=== PATIENT | female | born 1955 | race Asian ===

== ENCOUNTER 2024-02-23 14:52 | Inpatient (IN) | payer OTHER, BC, MEDICARE ==
[~2024-02-23] VITALS: Ht 154.9 cm; Wt 67.1 kg
[~2024-02-23 14:52] MED LIST: APIX5TAB PO; ASPI-1497 PO; ATOR40TA70 PO; COR3 PO; FAMO20TA8 PO; FURO-151 PO; LOSA25TA26 PO
[2024-02-23 16:00] LABS: HEMATOCRIT. 53.8 % (36.0-48.0); MEAN CORPUSCULAR HEMOGLOBIN 31.2 pg (28.0-32.0); MEAN CORPUSCULAR HGB CONC 33.5 g/dL (31.0-37.0); MEAN CORPUSCULAR VOLUME 93.1 fL (81.0-99.0); MEAN PLATELET VOLUME 11.2 fl (7.4-10.4); PLATELET 191 x1000/uL (130-400); RED BLOOD CELL COUNT 5.77 mill/uL (4.2-5.4); RED CELL DISTRIBUTION WIDTH 12.8 % (11.6-14.6); WHITE BLOOD COUNT 11.5 x1000/uL (4.5-11.0)
[2024-02-23 16:03] LABS: CHLORIDE 101 mEq/L (98-107); DIFFERENTIAL COMMENT 1; POTASSIUM 5.9 mEq/L (3.5-5.1); SODIUM 136 mEq/L (136-145)
[2024-02-23 16:04] LABS: CALCIUM 9.6 mg/dL (8.7-10.4); CARBON DIOXIDE 24 mEq/L (21-32); INR 0.9; PROTHROMBIN TIME 10.1 sec (9.6-11.0)
[2024-02-23 16:09] LABS: CREATININE 1.4 mg/dL (0.6-1.0); GLUCOSE 299 mg/dL (70-105); TROPONIN I HIGH SENSITIVITY 7 ng/L (3.0-34); UREA NITROGEN BLOOD 24 mg/dL (9-23)
[2024-02-23 16:11] LABS: ALANINE AMINOTRANSFERASE 19 IU/L (10-49); ALBUMIN 4.3 g/dL (3.2-4.8); ASPARTATE AMINOTRANSFERASE 37 IU/L (<34); BILIRUBIN TOTAL 0.5 mg/dL (0.1-1.0); PROTEIN TOTAL 8.3 g/dL (6.0-8.3)
[2024-02-23 16:23] LABS: PLATELET ESTIMATE NORMAL
[2024-02-23] MEDS: SODIUM CHLORIDE 0.9% 1,000 ML IV ONE (17:00)
[2024-02-23] MEDS: SODIUM CHLORIDE 0.9% 1000ML BAG (SEPSIS BOLUS) IV ONE (17:15)
[2024-02-23] MEDS ORDERED: ALBUTEROL (0.083%) 2.5MG/3ML NEB HHN ONE (17:30)
[2024-02-23] MEDS ORDERED: SODIUM POLYSTYRENE SULFONATE 15 G/60 ML BOT PO ONE (17:30)
[2024-02-23] MEDS: CEFTRIAXONE 1GM/50ML 50 ML IV ONE (19:09)
[2024-02-23] MEDS: AZITHROMYCIN 500MG/250ML 250 ML IV ONE (19:28)
[2024-02-23] MEDS: SODIUM BICARBONATE 8.4% 1 MEQ/ML 50ML SYR IV ONE (19:58)
[2024-02-23] MEDS: SODIUM POLYSTYRENE SULFONATE 15 G/60 ML BOT PO NR (19:58)
[2024-02-24] MEDS ORDERED: DEXTROSE 50% WATER 50ML SYRINGE IV PRN
[2024-02-24] MEDS: SODIUM POLYSTYRENE SULFONATE 15 G/60 ML BOT PO NR (00:07)
[2024-02-24] MEDS: SODIUM CHLORIDE 0.9% 1,000 ML IV SCH (00:07)
[2024-02-24 02:30] VITALS: BP 136/67; PULSE 105; RESP 16; TEMP 97.9
[2024-02-24 04:00] VITALS: BP 130/50; PULSE 90; RESP 16; TEMP 98.8
[2024-02-24 05:58] LABS: CALCIUM 8.8 mg/dL (8.7-10.4); CARBON DIOXIDE 25 mEq/L (21-32); CHLORIDE 105 mEq/L (98-107); SODIUM 139 mEq/L (136-145)
[2024-02-24 06:03] LABS: CREATININE 0.9 mg/dL (0.6-1.0); GLUCOSE 214 mg/dL (70-105); TRIGLYCERIDE 109 mg/dL (0-150)
[2024-02-24 06:04] LABS: LDL CHOLESTEROL 119 mg/dL (5-100); UREA NITROGEN BLOOD 17 mg/dL (9-23)
[2024-02-24 06:05] LABS: CHOLESTEROL 167 mg/dL (<200)
[2024-02-24 06:06] LABS: HDL CHOLESTEROL 35 mg/dL (>65); POTASSIUM 3.3 mEq/L (3.5-5.1)
[2024-02-24] MEDS: BLOOD SUGAR DIAGNOSTIC STRIP TEST SCH (06:20)
[2024-02-24] MEDS: INSULIN LISPRO 100 UNITS/ML SUBCUT SCH (06:20)
[2024-02-24 06:31] LABS: HEMATOCRIT. 47.8 % (36.0-48.0); HEMOGLOBIN. 15.7 g/dL (12.0-16.0); MEAN CORPUSCULAR HEMOGLOBIN 30.8 pg (28.0-32.0); MEAN CORPUSCULAR HGB CONC 32.9 g/dL (31.0-37.0); MEAN CORPUSCULAR VOLUME 93.7 fL (81.0-99.0); MEAN PLATELET VOLUME 11.4 fl (7.4-10.4); PLATELET 167 x1000/uL (130-400); RED CELL DISTRIBUTION WIDTH 12.7 % (11.6-14.6); WHITE BLOOD COUNT 8.2 x1000/uL (4.5-11.0)
[2024-02-24 06:35] LABS: DIFFERENTIAL COMMENT 1
[2024-02-24 08:00] VITALS: BP 127/54; PULSE 60; RESP 18; TEMP 98.1
[2024-02-24] MEDS: APIXABAN 5 MG TABLET PO SCH (09:18)
[2024-02-24] MEDS: ASPIRIN 81MG EC TABLET PO SCH (09:18)
[2024-02-24] MEDS: INSULIN GLARGINE 100 UNITS/ML SUBCUT SCH (09:42)
[2024-02-24 12:00] VITALS: BP 111/67; PULSE 95; RESP 16; TEMP 97.1
[2024-02-24 13:03] LABS: PLATELET ESTIMATE NORMAL
[2024-02-24 14:31] LABS: CLARITY URINE CLEAR (CLEAR); COLOR URINE YELLOW (YELLOW); GLUCOSE URINE 2+ (NEGATIVE); KETONES URINE NEGATIVE (NEGATIVE); LEUKOCYTE ESTERASE URINE 1+ (NEGATIVE); NITRITE URINE NEGATIVE (NEGATIVE); OCCULT BLOOD URINE NEGATIVE (NEGATIVE); PROTEIN URINE 2+ (NEGATIVE)
[2024-02-24 14:42] LABS: BACTERIA URINE NONE SEEN; RBC URINE 0-2 /hpf (0-2); SQUAMOUS EPITHELIAL CELL URINE 2+ /lpf (RARE/1+); YEAST URINE 1+
[2024-02-24 15:50] LABS: TROPONIN I HIGH SENSITIVITY 13 ng/L (3.0-34)
[2024-02-24 16:00] VITALS: BP 139/60; PULSE 92; RESP 19; TEMP 97.8
[2024-02-24 20:00] VITALS: BP_SYST 136; BP_SYST 139; BP_SYST 142; BP_DIAS 68; BP_DIAS 69; BP_DIAS 74; PULSE 87; RESP 19; TEMP 97.5
[2024-02-24] MEDS: ATORVASTATIN CALCIUM 40MG TABLET PO SCH (20:10)
[2024-02-24] MEDS: POTASSIUM CHLORIDE 20MEQ TABLET SR PO NR (20:10)
[2024-02-24] MEDS: CARVEDILOL 3.125 MG TABLET PO SCH (20:21)
[2024-02-24] MEDS ORDERED: NON FORMULARY PATIENT HOME MED XX SCH (22:30)
[2024-02-24] MEDS: VANCOMYCIN 1.25GM PMX (XELLIA) 250 ML IV NR (23:47)
[2024-02-25 04:00] VITALS: BP 126/53; PULSE 88; RESP 19; TEMP 97.5
[2024-02-25 07:09] LABS: CALCIUM 8.3 mg/dL (8.7-10.4); CARBON DIOXIDE 22 mEq/L (21-32); CHLORIDE 110 mEq/L (98-107); POTASSIUM 3.9 mEq/L (3.5-5.1); SODIUM 140 mEq/L (136-145)
[2024-02-25 07:15] LABS: CREATININE 0.8 mg/dL (0.6-1.0); GLUCOSE 189 mg/dL (70-105); UREA NITROGEN BLOOD 13 mg/dL (9-23)
[2024-02-25 08:00] VITALS: BP 139/72; PULSE 85; RESP 18; TEMP 97.5
[2024-02-25 12:00] VITALS: BP 142/63; PULSE 87; RESP 18; TEMP 97.7
[2024-02-25] MEDS ORDERED: VANCOMYCIN 500MG/100ML IV SCH (12:00)
[2024-02-25 15:13] VITALS: BP 122/61; PULSE 76; TEMP 98.3; O2SAT 98
[2024-02-25 16:00] VITALS: BP 135/58; PULSE 84; RESP 18; TEMP 98
== END 2024-02-25 15:45 | disposition home or self-care (01) | DRG 871 ==
LOC: ER 15:03 → 7EST 19:36 → EDBEDREQTM 19:43 → EDBEDREQ 19:43
PROVIDERS: ADMIT Internal Medicine; ATTEND Internal Medicine
DX: A41.89 Other specified sepsis (principal); U07.1 COVID-19; I50.42 Chronic combined systolic (congestive) and diastolic (congestive) heart failure; E78.00 Pure hypercholesterolemia, unspecified; I11.0 Hypertensive heart disease with heart failure; E11.65 Type 2 diabetes mellitus with hyperglycemia; Z86.711 Personal history of pulmonary embolism
CPT/HCPCS: 36415; 71045; 80048; 80053; 80061; 81003; 82962; 83036; 83605; 83880; 84145; 84484; 85025; 87426; 93005; 99291; J0456; J0696; J1815; J3370; J3490; J7030

== ENCOUNTER → 2024-06-22 | Outpatient (CLI) | payer BC, MEDICARE | END | disposition home or self-care (01) | LOC: LAB 16:47 | PROVIDERS: ATTEND Internal Medicine Critical Care Medicine | DX: I26.99 Other pulmonary embolism without acute cor pulmonale (principal) | CPT/HCPCS: 36415; 82565; 84520 ==

== ENCOUNTER → 2024-07-09 | Outpatient (CLI) | payer BC, MEDICARE ==
[~2024-07-09] MED LIST changes: +IOHEXOL-350 100 ML BOTTLE ONE
== END | disposition home or self-care (01) ==
LOC: CT 09:17
PROVIDERS: ATTEND Internal Medicine Critical Care Medicine
DX: I26.99 Other pulmonary embolism without acute cor pulmonale (principal); K80.20 Calculus of gallbladder without cholecystitis without obstruction; I82.493 Acute embolism and thrombosis of other specified deep vein of lower extremity, bilateral
CPT/HCPCS: 93970; 71275; Q9967

== ENCOUNTER 2024-08-23 07:48 | Emergency (ER) | payer BC, MEDICARE ==
[~2024-08-23] VITALS: Ht 160 cm; Wt 85.0 kg
[~2024-08-23 07:48] MED LIST changes: -IOHEXOL-350 100 ML BOTTLE ONE
[2024-08-23 07:50] VITALS: O2SAT 100
[2024-08-23 07:56] VITALS: BP 151/94; PULSE 92; RESP 18; TEMP 97.7; O2SAT 98
[2024-08-23 09:16] LABS: CLARITY URINE TURBID (CLEAR); COLOR URINE YELLOW (YELLOW); GLUCOSE URINE 2+ (NEGATIVE); KETONES URINE NEGATIVE (NEGATIVE); LEUKOCYTE ESTERASE URINE 3+ (NEGATIVE); NITRITE URINE NEGATIVE (NEGATIVE); OCCULT BLOOD URINE 3+ (NEGATIVE); PROTEIN URINE 3+ (NEGATIVE); SPECIFIC GRAVITY URINE 1.015 (1.005-1.030); UROBILINOGEN URINE 0.2 E.U./dL (0.2-1.0)
[2024-08-23] MEDS ORDERED: CEFP200T13 MT (09:47)
[2024-08-23] MEDS ORDERED: PHEN-815 MT (10:32)
[2024-08-23 10:40] LABS: SQUAMOUS EPITHELIAL CELL URINE NONE SEEN /lpf (RARE/1+); WBC URINE TNTC /hpf (0-2)
[2024-08-23 10:41] LABS: BACTERIA URINE 3+
== END 2024-08-23 11:38 | disposition home or self-care (01) ==
LOC: ER 08:09
DX: R35.0 Frequency of micturition (principal); R30.0 Dysuria; I11.0 Hypertensive heart disease with heart failure; I50.9 Heart failure, unspecified; E78.00 Pure hypercholesterolemia, unspecified; E11.9 Type 2 diabetes mellitus without complications; Z79.01 Long term (current) use of anticoagulants; Z79.82 Long term (current) use of aspirin; Z79.899 Other long term (current) drug therapy
CPT/HCPCS: 81003; 87077; 87186; 99283

== ENCOUNTER 2024-11-21 13:17 | Inpatient (IN) | payer BC, MEDICARE ==
[~2024-11-21] VITALS: Ht 149.9 cm; Wt 76.7 kg
[~2024-11-21 13:17] MED LIST changes: +CEFP200T13 MT; +PHEN-815 MT
[2024-11-21 14:09] LABS: BASOPHILS % 1.1 % (0.0-2.0); EOSINOPHILS % 1.3 % (0.0-5.0); HEMATOCRIT. 46.8 % (36.0-48.0); HEMOGLOBIN. 14.9 g/dL (12.0-16.0); LYMPHOCYTES % 21.8 % (20.0-50.0); MEAN CORPUSCULAR HEMOGLOBIN 29.5 pg (28.0-32.0); MEAN CORPUSCULAR HGB CONC 31.9 g/dL (31.0-37.0); MEAN CORPUSCULAR VOLUME 92.3 fL (81.0-99.0); MONOCYTES % 8.6 % (2.0-8.0); NEUTROPHILS % 67.2 % (40.0-76.0); PLATELET 310 x1000/uL (130-400); RED BLOOD CELL COUNT 5.07 mill/uL (4.2-5.4); RED CELL DISTRIBUTION WIDTH 12.7 % (11.6-14.6)
[2024-11-21 14:16] LABS: CHLORIDE 103 mEq/L (98-107); SODIUM 139 mEq/L (136-145)
[2024-11-21 14:17] LABS: CALCIUM 9.2 mg/dL (8.7-10.4); CARBON DIOXIDE 27 mEq/L (21-32)
[2024-11-21 14:22] LABS: GLUCOSE 322 mg/dL (70-105); TROPONIN I HIGH SENSITIVITY 8 ng/L (3.0-34); UREA NITROGEN BLOOD 16 mg/dL (9-23)
[2024-11-21 14:24] LABS: ALANINE AMINOTRANSFERASE 17 IU/L (10-49); ALBUMIN 3.6 g/dL (3.2-4.8); ASPARTATE AMINOTRANSFERASE 15 IU/L (<34); BILIRUBIN DIRECT 0.1 mg/dL (<=3.0); BILIRUBIN TOTAL 0.5 mg/dL (0.1-1.0)
[2024-11-21 14:25] LABS: PROTEIN TOTAL 7.3 g/dL (6.0-8.3)
[2024-11-21 18:41] VITALS: BP 141/63; PULSE 88; RESP 18; TEMP 36.7; O2SAT 99
[2024-11-21] MEDS ORDERED: ONDANSETRON HCL 4MG/2ML INJ IV PRN (19:30)
[2024-11-21] MEDS ORDERED: DOCUSATE SODIUM 100MG CAPSULE PO PRN (19:30)
[2024-11-21] MEDS ORDERED: MAGNESIUM/ALUMINUM HYDROXIDE/SIMETHICONE 30ML UDC PO PRN (19:30)
[2024-11-21] MEDS ORDERED: GUAIFENESIN 200MG/10ML SUGAR FREE UDC PO PRN (19:30)
[2024-11-21] MEDS ORDERED: IPRATROPIUM/ALBUTEROL 0.5-3(2.5)MG/3ML NEB HHN PRN (19:30)
[2024-11-21] MEDS ORDERED: DEXTROSE 50% WATER 50ML SYRINGE IV PRN (19:30)
[2024-11-21] MEDS ORDERED: CLONIDINE 0.1MG TABLET PO PRN (19:30)
[2024-11-21 20:00] VITALS: BP 117/60; PULSE 91; RESP 20; TEMP 36.4; O2SAT 99
[2024-11-21] MEDS: ATORVASTATIN CALCIUM 40MG TABLET PO SCH (20:30)
[2024-11-21] MEDS: GABAPENTIN 100MG CAPSULE PO SCH (20:30)
[2024-11-21] MEDS: APIXABAN 5 MG TABLET PO SCH (20:30)
[2024-11-21] MEDS: FAMOTIDINE 20MG TABLET PO SCH (20:30)
[2024-11-21] MEDS: CARVEDILOL 3.125 MG TABLET PO SCH (20:31)
[2024-11-21] MEDS: BLOOD SUGAR DIAGNOSTIC STRIP TEST SCH (20:33)
[2024-11-21] MEDS: INSULIN LISPRO 100 UNITS/ML SUBCUT SCH (20:57)
[2024-11-22] VITALS (7 sets, daily range): BP systolic 106–153; BP diastolic 54–76; PULSE 77–96; RESP 16–20; TEMP 36.3–37; O2SAT 97–100
[2024-11-22] MEDS: LOSARTAN 25 MG TABLET PO SCH (08:59)
[2024-11-22] MEDS: GABAPENTIN 100MG CAPSULE PO SCH (09:43)
[2024-11-22 11:27] LABS: CALCIUM 9.2 mg/dL (8.7-10.4); CARBON DIOXIDE 24 mEq/L (21-32); CHLORIDE 106 mEq/L (98-107); POTASSIUM 4.1 mEq/L (3.5-5.1); SODIUM 141 mEq/L (136-145)
[2024-11-22 11:29] LABS: BASOPHILS % 0.7 % (0.0-2.0); DIFFERENTIAL COMMENT 0; EOSINOPHILS % 1.4 % (0.0-5.0); HEMATOCRIT. 43.1 % (36.0-48.0); HEMOGLOBIN. 14.2 g/dL (12.0-16.0); LYMPHOCYTES % 21.6 % (20.0-50.0); MEAN CORPUSCULAR HEMOGLOBIN 30.3 pg (28.0-32.0); MEAN CORPUSCULAR VOLUME 91.8 fL (81.0-99.0); MONOCYTES % 8.1 % (2.0-8.0); NEUTROPHILS % 68.2 % (40.0-76.0); PLATELET 307 x1000/uL (130-400); RED CELL DISTRIBUTION WIDTH 12.6 % (11.6-14.6); WHITE BLOOD COUNT 9.1 x1000/uL (4.5-11.0)
[2024-11-22 11:32] LABS: CREATININE 0.8 mg/dL (0.6-1.0); GLUCOSE 184 mg/dL (70-105)
[2024-11-22 11:33] LABS: LDL CHOLESTEROL 116 mg/dL (5-100); TRIGLYCERIDE 175 mg/dL (0-150); UREA NITROGEN BLOOD 12 mg/dL (9-23)
[2024-11-22 11:34] LABS: CHOLESTEROL 181 mg/dL (<200); HDL CHOLESTEROL 39 mg/dL (>65)
[2024-11-22 11:35] LABS: PHOSPHORUS 2.3 mg/dL (2.5-4.9); T4 FREE 1.46 ng/dL (0.89-1.76); THYROID STIMULATING HORMONE 0.51 uIU/mL (0.55-4.78)
[2024-11-22] MEDS: MELATONIN 3MG TABLET PO PRN (22:26)
[2024-11-22] MEDS: ACETAMINOPHEN 325MG TABLET PO PRN (22:26)
[2024-11-23 04:00] VITALS: BP 123/69; PULSE 80; RESP 20; TEMP 36.8; O2SAT 97
[2024-11-23 08:00] VITALS: BP 123/62; PULSE 75; RESP 18; TEMP 36.7; O2SAT 99
[2024-11-23 08:44] VITALS: BP_SYST 123; BP_SYST 136; BP_DIAS 62; BP_DIAS 69; PULSE 75; TEMP 98.1; O2SAT 99
[2024-11-23] MEDS ORDERED: GABA-529 PO (09:51)
== END 2024-11-23 11:25 | disposition home or self-care (01) | DRG 74 ==
LOC: ER 13:17 → 8WST 16:02 → EDBEDREQTM 16:03 → EDBEDREQ 16:03
PROVIDERS: ADMIT Internal Medicine; ATTEND Internal Medicine
DX: E11.40 Type 2 diabetes mellitus with diabetic neuropathy, unspecified (principal); I50.22 Chronic systolic (congestive) heart failure; I11.0 Hypertensive heart disease with heart failure; R91.1 Solitary pulmonary nodule; E78.00 Pure hypercholesterolemia, unspecified; Z79.01 Long term (current) use of anticoagulants; Z79.899 Other long term (current) drug therapy; Z86.711 Personal history of pulmonary embolism; Z86.718 Personal history of other venous thrombosis and embolism; Z86.73 Personal history of transient ischemic attack (TIA), and cerebral infarction without residual deficits; Z87.891 Personal history of nicotine dependence
CPT/HCPCS: 36415; 71045; 80048; 80061; 80076; 82962; 83036; 83735; 83880; 84100; 84439; 84443; 84484; 85025; 93005; 99285; J1815

== ENCOUNTER 2024-11-29 12:03 | Inpatient (IN) | payer BC, MEDICARE ==
[~2024-11-29] VITALS: Ht 149.9 cm; Wt 77.1 kg
[~2024-11-29 12:03] MED LIST changes: +GABA-529 PO
[2024-11-29] MEDS: VALACYCLOVIR HCL 500MG TABLET PO STA (12:53)
[2024-11-29] MEDS: PREDNISONE 20MG TABLET PO ONE (12:53)
[2024-11-29 13:25] LABS: BASOPHILS % 0.5 % (0.0-2.0); EOSINOPHILS % 1.2 % (0.0-5.0); HEMATOCRIT. 44.1 % (36.0-48.0); HEMOGLOBIN. 14.1 g/dL (12.0-16.0); LYMPHOCYTES % 15.7 % (20.0-50.0); MEAN CORPUSCULAR HEMOGLOBIN 30.4 pg (28.0-32.0); MEAN CORPUSCULAR HGB CONC 31.8 g/dL (31.0-37.0); MEAN CORPUSCULAR VOLUME 95.3 fL (81.0-99.0); MEAN PLATELET VOLUME 10.4 fl (7.4-10.4); MONOCYTES % 7.2 % (2.0-8.0); NEUTROPHILS % 75.4 % (40.0-76.0); PLATELET 245 x1000/uL (130-400); RED BLOOD CELL COUNT 4.63 mill/uL (4.2-5.4); RED CELL DISTRIBUTION WIDTH 13.1 % (11.6-14.6); WHITE BLOOD COUNT 8.8 x1000/uL (4.5-11.0)
[2024-11-29 13:36] LABS: PROTHROMBIN TIME 10.4 sec (9.6-11.0)
[2024-11-29 13:55] LABS: CHLORIDE 107 mEq/L (98-107); SODIUM 141 mEq/L (136-145)
[2024-11-29 13:56] LABS: CALCIUM 8.7 mg/dL (8.7-10.4); CARBON DIOXIDE 26 mEq/L (21-32)
[2024-11-29 14:01] LABS: CREATININE 0.9 mg/dL (0.6-1.0); GLUCOSE 273 mg/dL (70-105); UREA NITROGEN BLOOD 13 mg/dL (9-23)
[2024-11-29 14:02] LABS: TROPONIN I HIGH SENSITIVITY 16 ng/L (3.0-34)
[2024-11-29 14:08] LABS: ETHANOL BLOOD < 10 mg/dL (<10)
[2024-11-29] MEDS ORDERED: GUAIFENESIN 200MG/10ML SUGAR FREE UDC PO PRN (14:30)
[2024-11-29] MEDS ORDERED: IPRATROPIUM/ALBUTEROL 0.5-3(2.5)MG/3ML NEB HHN PRN (14:30)
[2024-11-29] MEDS ORDERED: DOCUSATE SODIUM 100MG CAPSULE PO PRN (14:30)
[2024-11-29] MEDS ORDERED: ACETAMINOPHEN 325MG TABLET PO PRN (14:30)
[2024-11-29] MEDS ORDERED: DEXTROSE 50% WATER 50ML SYRINGE IV PRN (14:30)
[2024-11-29] MEDS ORDERED: CLONIDINE 0.1MG TABLET PO PRN (14:30)
[2024-11-29] MEDS ORDERED: ONDANSETRON HCL 4MG/2ML INJ IV PRN (14:30)
[2024-11-29] MEDS ORDERED: MAGNESIUM/ALUMINUM HYDROXIDE/SIMETHICONE 30ML UDC PO PRN (14:30)
[2024-11-29] MEDS: SODIUM CHLORIDE 0.9% 1,000 ML IV SCH ×2 (14:48→14:54)
[2024-11-29 15:06] LABS: ALBUMIN 3.5 g/dL (3.2-4.8)
[2024-11-29 17:00] VITALS: BP 163/76; PULSE 87; RESP 18; TEMP 36.5
[2024-11-29] MEDS: BLOOD SUGAR DIAGNOSTIC STRIP TEST SCH (17:10)
[2024-11-29 17:27] VITALS: BP 163/76; PULSE 76; RESP 18; TEMP 36.5
[2024-11-29] MEDS: INSULIN LISPRO 100 UNITS/ML SUBCUT SCH (18:15)
[2024-11-29 20:00] VITALS: BP 148/67; PULSE 88; RESP 20; TEMP 36.3; O2SAT 98
[2024-11-29] MEDS: APIXABAN 5 MG TABLET PO SCH (20:59)
[2024-11-29] MEDS: GABAPENTIN 100MG CAPSULE PO SCH (20:59)
[2024-11-29] MEDS: ATORVASTATIN CALCIUM 40MG TABLET PO SCH (20:59)
[2024-11-29] MEDS: CARVEDILOL 3.125 MG TABLET PO SCH (21:00)
[2024-11-29] MEDS: FAMOTIDINE 20MG TABLET PO SCH (21:02)
[2024-11-29] MEDS: VALACYCLOVIR HCL 500MG TABLET PO SCH (21:02)
[2024-11-30 00:31] LABS: CREATINE KINASE MB FRACTION < 0.5 ng/mL (0.5-3.6); TROPONIN I HIGH SENSITIVITY 12 ng/L (3.0-34)
[2024-11-30] MEDS: ACETAMINOPHEN 325MG TABLET PO PRN (01:26)
[2024-11-30 05:30] VITALS: BP 137/68; PULSE 79; RESP 18; TEMP 35.8; O2SAT 97
[2024-11-30 06:53] LABS: CREATINE KINASE MB FRACTION 0.6 ng/mL (0.5-3.6)
[2024-11-30 08:00] VITALS: BP 133/53; PULSE 79; RESP 18; TEMP 36.4; O2SAT 100
[2024-11-30] MEDS: PREDNISONE 20MG TABLET PO SCH (08:39)
[2024-11-30] MEDS: ASPIRIN 81MG EC TABLET PO SCH (08:40)
[2024-11-30] MEDS: LOSARTAN 25 MG TABLET PO SCH (08:41)
[2024-11-30 12:00] VITALS: BP 122/71; PULSE 85; RESP 18; TEMP 37; O2SAT 100
[2024-11-30 13:39] VITALS: BP 122/72; PULSE 86; TEMP 98.6; O2SAT 100
== END 2024-11-30 15:35 | disposition home or self-care (01) | DRG 74 ==
LOC: ER 12:03 → 8WST 16:58
PROVIDERS: ADMIT Internal Medicine; ATTEND Internal Medicine
DX: G51.0 Bell's palsy (principal); I50.22 Chronic systolic (congestive) heart failure; I11.0 Hypertensive heart disease with heart failure; R29.704 NIHSS score 4; E11.40 Type 2 diabetes mellitus with diabetic neuropathy, unspecified; E11.65 Type 2 diabetes mellitus with hyperglycemia; I45.10 Unspecified right bundle-branch block; E78.00 Pure hypercholesterolemia, unspecified; Z86.711 Personal history of pulmonary embolism; Z85.00 Personal history of malignant neoplasm of unspecified digestive organ; Z86.73 Personal history of transient ischemic attack (TIA), and cerebral infarction without residual deficits; Z79.01 Long term (current) use of anticoagulants; Z79.899 Other long term (current) drug therapy; Z82.49 Family history of ischemic heart disease and other diseases of the circulatory system; Z83.3 Family history of diabetes mellitus; Z86.19 Personal history of other infectious and parasitic diseases
CPT/HCPCS: 36415; 70496; 70498; 70544; 70553; 71045; 80048; 80061; 80320; 82040; 82553; 82962; 83036; 83880; 84484; 85025; 93005; 93970; 99291; J1815; J7512; G0480

== ENCOUNTER → 2024-12-23 | Outpatient (CLI) | payer BC ==
[2024-12-23 11:36] LABS: BASOPHILS % 0.5 % (0.0-2.0); EOSINOPHILS % 2.5 % (0.0-5.0); HEMOGLOBIN. 14.7 g/dL (12.0-16.0); MEAN CORPUSCULAR HEMOGLOBIN 30.9 pg (28.0-32.0); MEAN CORPUSCULAR VOLUME 96.7 fL (81.0-99.0); MEAN PLATELET VOLUME 11.2 fl (7.4-10.4); MONOCYTES % 7.1 % (2.0-8.0); NEUTROPHILS % 67.9 % (40.0-76.0); PLATELET 191 x1000/uL (130-400); RED BLOOD CELL COUNT 4.76 mill/uL (4.2-5.4); RED CELL DISTRIBUTION WIDTH 14.6 % (11.6-14.6); WHITE BLOOD COUNT 9.7 x1000/uL (4.5-11.0)
[2024-12-23 11:44] LABS: FOLIC ACID (FOLATE) SERUM > 20.00 ng/mL (>5.38); VITAMIN B12 SERUM 642 pg/mL (211-911)
[2024-12-23 12:32] LABS: CARBON DIOXIDE 27 mEq/L (21-32); CHLORIDE 110 mEq/L (98-107); POTASSIUM 4.3 mEq/L (3.5-5.1); SODIUM 142 mEq/L (136-145)
[2024-12-23 12:33] LABS: CALCIUM 9.6 mg/dL (8.7-10.4)
[2024-12-23 12:37] LABS: CREATININE 0.7 mg/dL (0.6-1.0)
[2024-12-23 12:38] LABS: GLUCOSE 145 mg/dL (70-105); TRIGLYCERIDE 115 mg/dL (0-150); UREA NITROGEN BLOOD 16 mg/dL (9-23)
[2024-12-23 12:39] LABS: ALANINE AMINOTRANSFERASE 15 IU/L (10-49); LDL CHOLESTEROL 53 mg/dL (5-100)
[2024-12-23 12:40] LABS: ALBUMIN 3.9 g/dL (3.2-4.8); ASPARTATE AMINOTRANSFERASE 16 IU/L (<34); BILIRUBIN TOTAL 0.8 mg/dL (0.1-1.0); CHOLESTEROL 111 mg/dL (<200); HDL CHOLESTEROL 37 mg/dL (>65); PROTEIN TOTAL 7.4 g/dL (6.0-8.3)
[2024-12-23 12:41] LABS: T4 FREE 1.24 ng/dL (0.89-1.76)
== END | disposition home or self-care (01) ==
LOC: LAB 06:26
PROVIDERS: ATTEND Internal Medicine Endocrinology, Diabetes & Metabolism
DX: I11.0 Hypertensive heart disease with heart failure (principal); E11.65 Type 2 diabetes mellitus with hyperglycemia; E78.5 Hyperlipidemia, unspecified; E55.9 Vitamin D deficiency, unspecified; G60.9 Hereditary and idiopathic neuropathy, unspecified
CPT/HCPCS: 36415; 80053; 80061; 82043; 82306; 82570; 82607; 82746; 83036; 83921; 84439; 84443; 85025; 85651; 86038; 86200; 86431

== ENCOUNTER → 2025-04-08 | Outpatient (CLI) | payer BC ==
[~2025-04-08] MED LIST changes: +GADOTERATE MEGLUMINE 5 MMOL/10 ML VIAL IV ONE
[2025-04-08 18:40] LABS: BASOPHILS % 0.4 % (0.0-2.0); EOSINOPHILS % 1.6 % (0.0-5.0); HEMATOCRIT. 47.0 % (36.0-48.0); HEMOGLOBIN. 15.5 g/dL (12.0-16.0); LYMPHOCYTES % 22.3 % (20.0-50.0); MEAN PLATELET VOLUME 10.5 fl (7.4-10.4); MONOCYTES % 6.6 % (2.0-8.0); NEUTROPHILS % 69.1 % (40.0-76.0); PLATELET 216 x1000/uL (130-400); RED BLOOD CELL COUNT 5.09 mill/uL (4.2-5.4); RED CELL DISTRIBUTION WIDTH 12.9 % (11.6-14.6)
[2025-04-08 18:55] LABS: CREATININE 1.1 mg/dL (0.6-1.0)
[2025-04-08 18:56] LABS: TRIGLYCERIDE 272 mg/dL (0-150); UREA NITROGEN BLOOD 22 mg/dL (9-23)
[2025-04-08 18:57] LABS: ASPARTATE AMINOTRANSFERASE 14 IU/L (<34); LDL CHOLESTEROL 98 mg/dL (5-100)
[2025-04-08 18:58] LABS: BILIRUBIN TOTAL 0.4 mg/dL (0.1-1.0); PROTEIN TOTAL 7.3 g/dL (6.0-8.3)
[2025-04-08 19:01] LABS: T4 FREE 1.34 ng/dL (0.89-1.76)
== END | disposition home or self-care (01) ==
LOC: LAB 16:01
PROVIDERS: ATTEND Internal Medicine Endocrinology, Diabetes & Metabolism
DX: I67.82 Cerebral ischemia (principal); G31.89 Other specified degenerative diseases of nervous system; E23.0 Hypopituitarism; I10 Essential (primary) hypertension; E11.9 Type 2 diabetes mellitus without complications; E03.9 Hypothyroidism, unspecified; E78.5 Hyperlipidemia, unspecified
CPT/HCPCS: 70553; 80061; 82043; 82570; 80053; 82010; 82533; 83036; 84439; 84443; 85025; 36415; 82024; 83001; 83002; 83520; 84146; A9577